=== PATIENT | female | born 1940 | race Caucasian/White ===

== ENCOUNTER 2017-06-18 09:58 | Emergency (ER) | payer OTHER, MEDICARE ==
--- NOTE | 2017-06-18 10:06 | PDOC ---
History of Present Illness - General Chief Complaint: Injury Stated Complaint: LEFT ELBOW BLEEDING Time Seen by Provider: 06/18/17 10:06 History Source: Patient, Significant Other Exam Limitations: No Limitations - History of Present Illness Initial Comments: 06/18/17 10:20 Pt presents to the ED complaining of bleeding from an elbow wound that occurred on Monday. Patient has a colles fracture on that wrist that she was seen in the ED for on Monday and was splinted by orthopedics. Wound on her elbow began bleeding again this AM. Patient denies severe pain in her wrist or fingers. Past History - Past Medical History Allergies/Adverse Reactions: Allergies Allergy/AdvReac Type Severity Reaction Status Date / Time No Known Allergies Allergy Verified 06/18/17 09:59 Home Medications: Ambulatory Orders Cephalexin Monohydrate [Keflex] 500 mg PO Q6H #20 capsule 06/16/17 Cholecalciferol (Vitamin D3) [Vitamin D -] 4,000 unit PO DAILY 06/16/17 Gluc Aguirre/Chondro Aguirre A/Vit C/Mn [Glucosamine Chondroitin Tab] 1 each PO DAILY 06/04 Oxycodone HCl/Acetaminophen [Percocet 5-325 mg Tablet] 1 - 2 tab PO Q4H PRN #20 tablet MDD 8 06/16/17 COPD: No - Suicide/Smoking/Psychosocial Hx Smoking History: Never smoked Have you smoked in the past 12 months: No Hx Alcohol Use: Yes Substance Use Type: Alcohol Review of Systems - Review of Systems Integumentary: Yes: Other (wound on the elbow) *Physical Exam - Physical Exam Extremity: positive: Coldness (L wrist splint is in place and is fairly loose. + ecchymosis of L 2nd-5th digits. Fingers are slightly colder than the fingers of her other hand, but capilary refil is brisk), Other (+ small skin tear to the L elbow with no signs of infection or active bleeding. ) Medical Decision Making - Medical Decision Making 06/18/17 10:27 Pt presents to the ED complaining of abrasion to the L elbow. Steri strip placed in the ED. Will discharge home. *DC/Admit/Observation/Transfer Diagnosis at time of Disposition: Abrasion, elbow w/o infection - Discharge Dispostion Disposition: HOME Condition at time of disposition: Good Admit: No - Referrals - Patient Instructions Printed Discharge Instructions: DI for Abrasion Additional Instructions: Return to the ED for new or changing symptoms, especially severely worsening wrist pain or pain in your fingers. If the abrasion starts to bleed again, hold pressure until it stops, then apply another dressing. Make sure that you follow up with Dr. Unger on Monday. - Post Discharge Activity
[2017-06-18 10:17] VITALS: BP 145/83; PULSE 77; TEMP 97.8; BMI 19.0
== END 2017-06-18 10:24 | disposition home or self-care (01) ==
LOC: FER 09:58
DX: S50.312A Abrasion of left elbow, initial encounter (principal); L08.9 Local infection of the skin and subcutaneous tissue, unspecified
CPT/HCPCS: 99281-25

== ENCOUNTER 2017-06-28 06:04 | Day surgery (SDC) | payer OTHER, MEDICARE ==
[2017-06-28] MEDS ORDERED: DEXAMETHASONE SOD PHOSPHATE/PF 10 MG/ML SDV ONE (07:49)
[2017-06-28] MEDS ORDERED: ROPIVACAINE HCL 0.5% 30ML VIAL ONE (07:49)
[2017-06-28] MEDS ORDERED: MIDAZOLAM HCL 2 MG/2 ML SINGLE DOSE VIAL ONE (07:49)
[2017-06-28] MEDS ORDERED: LIDOCAINE HCL 2% (20ML MULTI-DOSE VIAL) NR ONE (08:04)
[2017-06-28] MEDS ORDERED: BUPIVACAINE HCL/PF 2.5 MG/ML - 30 ML VIAL IJ ONE (08:04)
[2017-06-28] MEDS ORDERED: oxyCODONE HCL 5 MG TABLET PO PRN (08:52)
[2017-06-28] MEDS ORDERED: ONDANSETRON 4 MG/2 ML VIAL IVPUSH PRN (08:52)
[2017-06-28] MEDS ORDERED: LACTATED RINGERS SOLUTION 1,000 ML IV SCH (09:00)
--- NOTE | 2017-06-28 10:46 | OP ---
DATE OF OPERATION: 06/28/2017 PREOPERATIVE DIAGNOSIS: Left comminuted intraarticular displaced distal radius fracture. POSTOPERATIVE DIAGNOSIS: Left comminuted intraarticular displaced distal radius fracture. OPERATIVE PROCEDURE: 1. Open reduction internal fixation of left comminuted intraarticular displaced distal radius fracture with internal fixation of 3 or more fragments. 2. Left brachioradialis tenotomy. SURGEON: Asael Dickinson MD ELECTRON MICROPROBE OPERATOR: RACHAEL Anne ANESTHESIA: Regional and sedation. COMPLICATIONS: None. ESTIMATED BLOOD LOSS: Minimal. INDICATIONS FOR PROCEDURE: The patient is a 77-year-old female with the above findings, indicated for operative treatment. The risks, benefits, and alternatives were discussed with the patient at length. Proper informed consent was obtained. DESCRIPTION OF PROCEDURE: After proper identification of the patient and the correct operative site, the patient was brought to the operating room and placed supine on the operating room table with prominences well padded. Sedation and regional anesthesia were given. Left upper extremity was prepped and draped in the usual sterile fashion. Well-padded tourniquet was placed with a sterile prep. Esmarch bandage used to exsanguinate the right upper extremity. Tourniquet was inflated to 250 mmHg. A longitudinal incision was made over the volar aspect of the wrist. Incision was taken sharply through the skin with blunt and sharp dissection through subcutaneous tissues. Flexor carpi radialis tendon along with the contents of the canal was bluntly and gently retracted in an ulnarward direction for the remainder of the procedure. Pronator quadratus was divided longitudinally, elevated off the distal radius. Highly comminuted and osteoporotic fracture was noted. Fracture fragments were attempted to be reduced, but the radial styloid was stuck to the brachioradialis and impossible to reduce. Therefore, a brachioradialis tenotomy was performed in the subperiosteal fashion. The fracture was then re-reduced into satisfactory position and held with an Acumed Acu-Loc distal radius plate with distal locking screws and proximal nonlocking screws. This provided secure, stable, satisfactory fixation of the fracture in satisfactory alignment. This was confirmed visually as well as radiographically. Scapholunate interval and distal radioulnar joints were stressed and found to be stable. Wound was irrigated with saline and repaired in layers including the pronator quadratus with a 4-0 Vicryl and a 4-0 Monocryl. Steri-Strips, sterile dressings, and a volar wrist splint were placed. The patient was reversed from anesthesia and brought to the recovery room in stable condition. She tolerated the procedure well. Isai Robbins, the assistant mechanic, was integral throughout the procedure. Procedure could not have been performed without a skilled operative assistant mechanic. ASAEL DICKINSON M.D. GRETCHEN/[id number]
[2017-06-28 10:48] VITALS: TEMP 98
[2017-06-28 10:50] VITALS: BP 120/70; PULSE 82
== END 2017-06-28 10:50 | disposition home or self-care (01) ==
LOC: FASU 06:04
PROVIDERS: ATTEND Orthopaedic Surgery Hand Surgery
PROC: 0LN60ZZ Release Left Lower Arm and Wrist Tendon, Open Approach (ICD-10-PCS; 2017-06-28)
PROC: 0PSJ04Z Reposition Left Radius with Internal Fixation Device, Open Approach (ICD-10-PCS; principal; 2017-06-28 08:55)
DX: S52.532A Colles' fracture of left radius, initial encounter for closed fracture (principal); X58.XXXA Exposure to other specified factors, initial encounter; Y93.9 Activity, unspecified; Y92.9 Unspecified place or not applicable
CPT/HCPCS: 73110-TC-LR-FY

== ENCOUNTER 2020-01-22 08:06 | Day surgery (SDC) | payer OTHER, MEDICARE ==
[2020-01-17 11:51] VITALS: BMI 19.9
--- OUTSIDE RECORDS SUMMARY | 2020-01-22 08:09 | XMS ---
:1940 [facility] Support Name Relationship Address Phone RE Unavailable Unavailable Unavailable SHAWANAD [address] [facility] [place] [address] Re-disclosure Warning The records that you are about to access may contain information from federally- assisted alcohol or drug abuse programs. If such information is present, then the following federally mandated warning applies: This information has been disclosed to you from records protected by federal confidentiality rules (42 CFR part 2). The federal rules prohibit you from making any further disclosure of this information unless further disclosure is expressly permitted by the written consent of the person to whom it pertains or as otherwise permitted by 42 CFR part 2. A general authorization for the release of medical or other information is NOT sufficient for this purpose. The Federal rules restrict any use of the information to criminally investigate or prosecute any alcohol or drug abuse patient.The records that you are about to access may contain highly sensitive health information, the redisclosure of which is protected by Article 27-F of the [facility] Public Health law. If you continue you may haveaccess to information: Regarding HIV / AIDS; Provided by facilities licensed or operated by the [facility] Office of Mental Health; or Provided by the [facility] Office for People With Developmental Disabilities. If such information is present, then the following [facility] mandated warning applies: This information has been disclosed to you from confidential records which are protected by state law. State law prohibits you from making any further disclosure of this information without the specific written consent of the person to whom it pertains, or as otherwise permitted by law. Any unauthorized further disclosure in violation of state law may result in a fine or prison sentence or both. A general authorization for the release of medical or other information is NOT sufficient authorization for further disclosure. Insurance Providers Payer name Policy type Policy ID Covered Covered green party's Policy P carolann / Coverage green party ID relationship to [employer] ormation type [employer] [facility] [id number] [employer] MEDICARE [id number] SP [id number] Results ID Date Data Source [id number] 01/18/2020 12:05:00 PM EDT [facility] Name Value Range Interpretation Description Data Sup porting Code Source(s) Document(s ) SARS [facility] coronavirus 2 RNA This lab was ordered by BOOGIE GARCIA and reported by [facility]. Procedure
[2020-01-22] MEDS ORDERED: CYCLOPENTOLATE 2% OPHTH SOLN 2 ML BOTTLE ONE (08:16)
[2020-01-22] MEDS ORDERED: PHENYLEPHRINE 2.5% OPHTH SOLN 15 ML BOTTLE ONE (08:16)
[2020-01-22] MEDS ORDERED: CIPROFLOXACIN 0.3% EYE DROPS 5 ML BOTTLE ONE (08:16)
[2020-01-22] MEDS ORDERED: TROPICAMIDE 1% OPHTH SOLN 15 ML BOTTLE ONE (08:16)
[2020-01-22] MEDS ORDERED: MIDAZOLAM HCL 2 MG/2 ML SINGLE DOSE VIAL ONE (09:48)
[2020-01-22 10:48] VITALS: TEMP 98.2
[2020-01-22] MEDS ORDERED: CARBACHOL 0.01% INTRA-OCULAR 1.5 ML VIAL ONE (11:13)
[2020-01-22] MEDS ORDERED: NEO/POLYMYX B SULF/DEXAMETH OPHTHALMIC 5ML BOTTLE ONE (11:13)
[2020-01-22] MEDS ORDERED: TETRACAINE 0.5% OPHTH SOLN 2 ML BOTTLE ONE (11:13)
[2020-01-22] MEDS ORDERED: BSS (NA/CA/MG/K) BALANCED SALT SOLUTION OPHTH SOLN 15 ML BOTTLE ONE (11:13)
[2020-01-22] MEDS ORDERED: EPINEPHrine/PF 1 MG/1 ML (1:1,000) AMPULE ONE (11:13)
[2020-01-22] MEDS ORDERED: LIDOCAINE 1% P/F 10 MG/ML VIAL ONE (11:13)
[2020-01-22 12:01] VITALS: BP 135/79; PULSE 76
--- NOTE | 2020-01-22 14:12 | OP ---
DATE OF OPERATION: 01/22/2020 OPERATIVE PROCEDURE: Lens phacoemulsification with posterior chamber intraocular lens placement, right eye. PREOPERATIVE DIAGNOSIS: Visually significant cataract of right eye. POSTOPERATIVE DIAGNOSIS: Visually significant cataract of right eye. SURGEON: Seth Brownlee M.D. ANESTHESIA: MAC. PROCEDURE: The patient was brought to the operating room and placed under monitored anesthesia care by Anesthesia. A drop of tetracaine was then placed over the right eye. The patient was then prepped and draped in the usual sterile manner. A speculum was then placed over the right eye. The eye was then well irrigated with copious amounts of BSS (balanced salt solution). The operating microscope was then moved into position. A paracentesis was performed using a 15-degree blade. At this point 0.5 mL of 1% preservative-free lidocaine was injected into the anterior chamber. Amvisc Plus was then injected into the anterior chamber. A clear corneal incision was then formed using a 2.2-mm keratome. A capsulorrhexis was then performed in a continuous circular fashion beginning with a cystotome completed with a Utrata forceps. Hydrodissection was then performed using BSS on a cannula. The phaco probe was then introduced through the corneal wound and the cataract was removed using the phaco chop technique. Approximately 3 seconds of absolute phaco time was used. The remaining cortex was then removed using irrigation and aspiration with an I/A probe. The capsule was then filled with regular Amvisc and the capsule was noted to be intact. A previously selected foldable posterior chamber intraocular lens was then injected into the capsule through the corneal wound using a lens injector. It was then dialed into position using a Sinskey hook. The Amvisc was then removed using irrigation and aspiration. Miostat was then injected through the paracentesis to constrict the pupil. The paracentesis and corneal wound were then hydrated and noted to be watertight. A drop of Maxitrol was then placed over the eye. The speculum was removed and clear shield was taped over the eye. The patient tolerated the procedure well and there were no surgical complications. The patient was asked to follow up in my office the next day. SETH BROWNLEE M.D. TANNER/[id number]
== END 2020-01-22 11:15 | disposition home or self-care (01) ==
LOC: FASU 08:06
PROVIDERS: ATTEND Ophthalmology
PROC: 08RJ3JZ Replacement of Right Lens with Synthetic Substitute, Percutaneous Approach (ICD-10-PCS; principal; 2020-01-22 10:06)
DX: H26.8 Other specified cataract (principal)

== ENCOUNTER 2020-02-19 10:02 | Inpatient (IN) | payer OTHER, MEDICARE ==
[2020-02-13 12:51] VITALS: BMI 19.9
[2020-02-19] MEDS: CYCLOPENTOLATE 2% OPHTH SOLN 2 ML BOTTLE ONE ×3 (10:40→10:50)
[2020-02-19] MEDS: TROPICAMIDE 1% OPHTH SOLN 15 ML BOTTLE ONE ×3 (10:40→10:50)
[2020-02-19] MEDS: PHENYLEPHRINE 2.5% OPHTH SOLN 15 ML BOTTLE ONE ×3 (10:40→10:50)
[2020-02-19] MEDS: CIPROFLOXACIN 0.3% EYE DROPS 5 ML BOTTLE ONE ×3 (10:40→10:50)
[2020-02-19] MEDS ORDERED: MIDAZOLAM HCL 2 MG/2 ML SINGLE DOSE VIAL ONE (12:32)
[2020-02-19] MEDS ORDERED: METOPROLOL TARTRATE 5 MG/5 ML VIAL ONE ×2 (12:52→13:34)
[2020-02-19] MEDS ORDERED: ESMOLOL HCL 100,000 MCG/10 ML VIAL ONE (12:52)
[2020-02-19] MEDS ORDERED: METOPROLOL TARTRATE 5 MG/5 ML VIAL IVPUSH ONE ×2 (13:30)
[2020-02-19 13:48] LABS: CALCIUM 9.2 mg/dl (8.5-10); CREATININE 0.9 mg/dl (0.55-1.3); POTASSIUM 4.1 mmol/L (3.5-5.1)
[2020-02-19] MEDS ORDERED: DIGOXIN 0.5 MG/2 ML AMPUL ONE (13:51)
[2020-02-19 13:52] LABS: HEMOGLOBIN 15.7 GM/dl (10.7-15.3); MCH 29.7 pg (25.7-33.7); MCHC 33.4 g/dl (32.0-36.0); MEAN PLT VOLUME 8.8 fl (7.5-11.1); PLATELET COUNT 242 K/MM3 (134-434); RBC 5.29 M/mm3 (3.60-5.2); RDW 12.4 % (11.6-15.6); WHITE BLOOD COUNT 7.1 K/mm3 (4.0-10.8)
[2020-02-19] MEDS: DIGOXIN 0.5 MG/2 ML AMPUL IVPUSH ONE ×2 (14:00→17:02)
[2020-02-19] MEDS: METOPROLOL TARTRATE 25 MG TABLET (FP) PO ONE ×2 (14:05→17:02)
[2020-02-19] MEDS: prednisoLONE ACETATE 1% OPHTH SUSP 5 ML BOTTLE OS SCH ×3 (14:40→21:38)
[2020-02-19] MEDS: DICLOFENAC SODIUM 0.1% OPHTHALMIC 2.5ML BOTTLE OS SCH ×3 (14:41→21:49)
[2020-02-19] MEDS: CIPROFLOXACIN 0.3% EYE DROPS 5 ML BOTTLE OS SCH ×3 (14:42→21:29)
[2020-02-19] MEDS ORDERED: LIDOCAINE 1% P/F 10 MG/ML VIAL ONE (14:52)
[2020-02-19] MEDS ORDERED: CARBACHOL 0.01% INTRA-OCULAR 1.5 ML VIAL ONE (14:52)
[2020-02-19] MEDS ORDERED: DIGOXIN 0.5 MG/2 ML AMPUL IVPUSH ONE (16:54)
[2020-02-19] MEDS: DIGOXIN 0.125 MG TABLET (FP) PO SCH (17:33)
[2020-02-19] MEDS: ENOXAPARIN NA (PORCINE) 60 MG/0.6 ML DISP.SYRIN SQ SCH (19:03)
[2020-02-19] MEDS: METOPROLOL TARTRATE 25 MG TABLET (FP) PO SCH (21:22)
[2020-02-20] MEDS: DICLOFENAC SODIUM 0.1% OPHTHALMIC 2.5ML BOTTLE OS SCH (06:13)
[2020-02-20] MEDS: CIPROFLOXACIN 0.3% EYE DROPS 5 ML BOTTLE OS SCH (06:15)
[2020-02-20] MEDS: ENOXAPARIN NA (PORCINE) 60 MG/0.6 ML DISP.SYRIN SQ SCH (06:16)
[2020-02-20 08:14] LABS: CALCIUM 9.1 mg/dl (8.5-10); MAGNESIUM 2.2 mg/dL (1.8-2.4); POTASSIUM 4.2 mmol/L (3.5-5.1)
[2020-02-20] MEDS ORDERED: PT OWN MED DRAWER 7, Y5N ONE (09:13)
[2020-02-20 09:14] VITALS: BP 121/65; TEMP 97.9
[2020-02-20] MEDS: METOPROLOL TARTRATE 25 MG TABLET (FP) PO SCH ×2 (09:15→09:18)
[2020-02-20] MEDS: DIGOXIN 0.125 MG TABLET (FP) PO SCH ×2 (09:15→09:19)
[2020-02-20 09:19] VITALS: PULSE 71
[2020-02-20] MEDS: prednisoLONE ACETATE 1% OPHTH SUSP 5 ML BOTTLE OS SCH (09:44)
== END 2020-02-20 10:04 | disposition home or self-care (01) | DRG 989 ==
LOC: FASU 10:02 → FM/S 14:02
PROVIDERS: ADMIT Ophthalmology; ATTEND Ophthalmology
PROC: 08R Eye, Replacement (ICD-10-PCS; principal; 2020-02-19 12:47)
DX: I48.91 Unspecified atrial fibrillation (principal); M85.80 Other specified disorders of bone density and structure, unspecified site; L40.9 Psoriasis, unspecified; H26.9 Unspecified cataract
CPT/HCPCS: 36415; 80048; 82550; 83036; 83735; 84443; 84484; 85027; 93005; 94760

== ENCOUNTER 2023-10-23 21:22 | Observation (INO) | payer OTHER, MEDICARE ==
[2023-10-23 22:02] LABS: HEMATOCRIT 51.4 % (32.4-45.2); HEMOGLOBIN 16.1 G/dL (10.7-15.3); MCHC 31.4 g/dl (32.0-36.0); MEAN PLT VOLUME 9.3 fl (7.5-11.1); PLATELET COUNT 285.9 10^3/uL (134-434); RBC 5.77 10^6/uL (3.60-5.2); RDW 14.6 % (11.6-15.6); WHITE BLOOD COUNT 7.7 10^3/uL (4.0-10.8)
[2023-10-23] MEDS ORDERED: METOPROLOL TARTRATE 5 MG/5 ML VIAL ONE ×2 (22:02→22:33)
[2023-10-23] MEDS: METOPROLOL TARTRATE 5 MG/5 ML VIAL IVPUSH ONE ×2 (22:05→22:40)
[2023-10-23 22:08] LABS: PLATELET ESTIMATE ADEQUATE
[2023-10-23 22:11] LABS: INR 1.58 (0.83-1.09); PROTHROMBIN TIME (PATIENT) 17.8 SEC (9.7-13.0)
[2023-10-23 22:22] LABS: ALBUMIN 4.2 g/dl (3.4-5.0); BILIRUBIN,TOTAL 0.6 mg/dl (0.2-1); CALCIUM 9.6 mg/dl (8.5-10.1); POTASSIUM 4.3 mmol/L (3.5-5.1); TOT PROT 6.6 g/dl (6.4-8.2)
[2023-10-24] MEDS ORDERED: ACETAMINOPHEN 325 MG TABLET (FP) PO PRN (01:01)
[2023-10-24] MEDS ORDERED: DOCUSATE SODIUM 100 MG CAPSULE (FP) PO PRN (01:01)
[2023-10-24 02:02] VITALS: RESP 18
[2023-10-24 06:29] VITALS: BMI 45.9
[2023-10-24 08:17] LABS: HEMATOCRIT 46.1 % (32.4-45.2); HEMOGLOBIN 14.7 G/dL (10.7-15.3); MCH 28.3 pg (25.7-33.7); MCHC 31.9 g/dl (32.0-36.0); MEAN CELL VOLUME 88.7 fl (80-96); MEAN PLT VOLUME 9.6 fl (7.5-11.1); RDW 14.6 % (11.6-15.6); WHITE BLOOD COUNT 5.8 10^3/uL (4.0-10.8)
[2023-10-24 10:00] LABS: CALCIUM 9.5 mg/dl (8.5-10.1); MAGNESIUM 2.2 mg/dL (1.8-2.4); PHOSPHOROUS 3.5 (2.5-4.9); POTASSIUM 4.3 mmol/L (3.5-5.1)
[2023-10-24] MEDS: LACTATED RINGERS SOLUTION 1000 ML INFUS.BAG IV ONE (10:23)
[2023-10-24] MEDS: SODIUM CHLORIDE 0.9% 500 ML INFUS.BAG IV ONE (10:27)
[2023-10-24] MEDS: RIVAROXABAN 2.5 MG TABLET PO SCH (13:45)
[2023-10-24 14:43] VITALS: BP 113/60; PULSE 84; TEMP 97.6
[2023-10-24] MEDS ORDERED: ATORVASTATIN CA 10 MG TABLET (FP) PO SCH (22:00)
== END 2023-10-24 16:19 | disposition home or self-care (01) ==
LOC: FER 21:22 → FM/S 10-24 01:02
PROVIDERS: ADMIT Internal Medicine; ATTEND Internal Medicine
PROC: 3E033GC Introduction of Other Therapeutic Substance into Peripheral Vein, Percutaneous Approach (ICD-10-PCS; principal; 2023-10-24)
PROC: 3E0337Z Introduction of Electrolytic and Water Balance Substance into Peripheral Vein, Percutaneous Approach (ICD-10-PCS; 2023-10-24)
DX: I48.0 Paroxysmal atrial fibrillation (principal); M85.80 Other specified disorders of bone density and structure, unspecified site; R00.2 Palpitations
CPT/HCPCS: 36415; 80048; 80053; 81003; 81015; 83735; 84100; 84439; 84443; 84484; 85027; 85610; 87086; 93005; 96374; 96376; 99285-25; G0378